=== PATIENT | male | born 1965 | race Two or more races ===

== ENCOUNTER 2017-07-02 22:52 | Emergency (ER) | payer MEDICARE, MEDICAID ==
--- NOTE | 2017-07-02 23:09 | ED Physician Documentation ---
PD HPI CHEST PAIN - Stated complaint Stated Complaint: CP - Chief complaint Chief Complaint: Cardiac - History obtained from History obtained from: Patient - History of Present Illness Timing - onset: Enter time (21:58), Today Timing - onset during: Rest Timing - duration: Minutes Timing - details: Now resolved Pain level max: 8 Pain level now: 0 Quality: Pain Location: Substernal Radiation: Left upper extremity Improved by: Nitro Worsened by: No: Exertion, Inspiration, Eating, Movement, Palpation, Position Associated symptoms: Shortness of air, Nausea. No: Vomiting Recently seen: Not recently seen - Additional information Additional information: from [facility], was at rest 9:58 pm had sudden onset chest pain radiating to left shoulder, diaphoretic, mild dyspnea and nausea. given 81mg ASA and pain was relieved with ntg x 2. denies h/o similar symptoms Review of Systems Constitutional: reports: Sweats. denies: Fever Cardiac: reports: Chest pain / pressure. denies: Palpitations, Calf pain Respiratory: reports: Dyspnea. denies: Cough GI: reports: Nausea. denies: Abdominal Pain, Vomiting PD PAST MEDICAL HISTORY - Past Medical History Past Medical History: Yes Cardiovascular: Hypertension, High cholesterol Respiratory: COPD Neuro: Head injury, Other Endocrine/Autoimmune: None GI: None : None HEENT: None Psych: Depression, Anxiety, Bipolar disorder, Other Musculoskeletal: Osteoarthritis, Other Derm: None - Past Surgical History Past Surgical History: Yes General: Appendectomy - Present Medications Home Medications: Ambulatory Orders Medication Instructions Recorded Confirmed Divalproex Sodium [Depakote] 500 mg PO DAILY 07/14/14 12/29/14 Lorazepam [Ativan] 1 mg PO QID #20 tablet 07/14/14 12/29/14 Metoprolol Tartrate 25 mg PO DAILY 11/19/14 12/29/14 Ondansetron Odt [Zofran] 4 mg TL Q6H PRN #10 tablet 11/19/14 12/29/14 Atorvastatin Calcium [Lipitor] 10 mg PO DAILY 12/20/14 12/29/14 Lisinopril 10 mg PO DAILY 12/29/14 12/29/14 Lorazepam [Ativan] 1 mg PO QID #12 tablet 12/29/14 oxyCODONE/ACET 5/325 [Percocet 5 PO Q4-6H PRN 12/29/14 12/29/14 mg/325 mg] - Allergies Allergies/Adverse Reactions: Allergies Allergy/AdvReac Type Severity Reaction Status Date / Time No Known Drug Allergies Allergy Verified 07/02/17 23:04 - Social History Does the pt smoke?: Yes Smoking Status: Current every day smoker Does the pt drink ETOH?: Yes Does the pt have substance abuse?: No - Immunizations Immunizations are current?: Yes - POLST Patient has POLST: No PD ED PE NORMAL - Vitals Vital signs reviewed: Yes - General General: Alert and oriented X 3, No acute distress, Well developed/nourished - Cardiac Cardiac: RRR, No murmur, No gallop, No rub - Respiratory Respiratory: No respiratory distress, Clear bilaterally - Abdomen Abdomen: Soft, Non tender - Derm Derm: Normal color, Warm and dry - Extremities Extremities: No edema Results - Vitals Vitals: Oxygen O2 Source Room air - EKG (time done) No standard instances Rate: Rate (enter#) (70) Rhythm: NSR Ovalo: Normal Intervals: Normal TN QRS: Normal Ischemia: Normal ST segments - Labs Labs: Laboratory Tests 07/02/17 07/02/17 07/02/17 23:18 23:18 23:18 WBC 8.4 RBC 4.96 Hgb 15.6 Hct 45.7 MCV 92.2 MCH 31.4 H MCHC 34.0 RDW 13.3 Plt Count 271 MPV 7.0 L Neut # 4.0 Lymph # 3.5 Wirt # 0.6 Eos # 0.2 Baso # 0.1 Absolute Nucleated RBC 0.00 Nucleated RBC % 0.0 Sodium 138 Potassium 4.1 Chloride 102 Carbon Dioxide 25 Anion Gap 11.0 BUN 17 Creatinine 0.8 Estimated GFR (MDRD) 102 Glucose 91 Calcium 9.4 Total Bilirubin 0.6 AST 23 ALT 23 Alkaline Phosphatase 76 Troponin I < 0.04 Total Protein 7.6 Albumin 4.4 Globulin 3.2 Albumin/Globulin Ratio 1.4 Lipase 14 L 07/03/17 01:28 WBC RBC Hgb Hct MCV MCH MCHC RDW Plt Count MPV Neut # Lymph # Wirt # Eos # Baso # Absolute Nucleated RBC Nucleated RBC % Sodium Potassium Chloride Carbon Dioxide Anion Gap BUN Creatinine Estimated GFR (MDRD) Glucose Calcium Total Bilirubin AST ALT Alkaline Phosphatase Troponin I < 0.04 Total Protein Albumin Globulin Albumin/Globulin Ratio Lipase - Rads (name of study) chest xray Radiology: Prelim report reviewed, See rad report PD MEDICAL DECISION MAKING - ED course Complexity details: reviewed results, re-evaluated patient, considered differential, d/w patient ED course: remained asymptomatic during ED stay. normal w/u including EKG, CXR, and tni x 2 (2 hours apart). outpatient f/u recommended, might benefit from stress test Departure - Departure Disposition: Home, Self Care Clinical Impression: Chest pain Condition: Good Instructions: ED Chest Pain Atypical Unkn Cause Follow-Up: [facility] [Provider Group] [facility] [Provider Group] Comments: Your tests tonight (EKG, blood tests, chest xray) do not reveal the reason for your symptoms, but these results are reassuring and thus you can follow-up with a doctor in the next several days to discuss possible further testing. Discharge Date/Time: 07/03/17 02:51
[2017-07-02 23:28] LABS: BASOPHILS # (AUTO) 0.1 10^3/uL (0.0-0.1); BASOPHILS % (AUTO) 0.6 %; EOSINOPHILS # (AUTO) 0.2 10^3/uL (0.0-0.7); EOSINOPHILS % (AUTO) 2.7 %; HGB - HEMOGLOBIN 15.6 g/dL (14.0-18.0); LYMPHOCYTES # (AUTO) 3.5 10^3/uL (1.5-3.5); LYMPHOCYTES % (AUTO) 41.9 %; MEAN CORPUSCULAR HEMOGLOBIN 31.4 pg (27.0-31.0); MEAN CORPUSCULAR VOLUME 92.2 fL (80.0-94.0); MONOCYTES # (AUTO) 0.6 10^3/uL (0.0-1.0); MONOCYTES % (AUTO) 7.3 %; NEUTROPHILS % (AUTO) 47.5 %; PLT - PLATELET COUNT 271 10^3/uL (130-450); RED BLOOD COUNT 4.96 10^6/uL (4.70-6.10); RED CELL DISTRIBUTION WIDTH 13.3 % (12.0-15.0); WHITE BLOOD COUNT 8.4 x10^3/uL (4.8-10.8)
[2017-07-02 23:40] LABS: ALBUMIN 4.4 g/dL (3.2-5.5); ALBUMIN/GLOBULIN RATIO 1.4 (1.0-2.2); BILIRUBIN,TOTAL 0.6 mg/dL (0.2-1.0); CALCIUM 9.4 mg/dL (8.5-10.3); CREATININE 0.8 mg/dL (0.6-1.2); TOTAL PROTEIN 7.6 g/dL (6.7-8.2)
--- NOTE | 2017-07-02 23:41 | XRAY Report ---
EXAM: CHEST RADIOGRAPHY EXAM DATE: 07/02/2017 11:32 PM. CLINICAL HISTORY: Chest pain and nausea. COMPARISON: 06/30/2014. TECHNIQUE: 2 views. FINDINGS: Lungs/Pleura: No alveolar consolidation or pleural effusion. No pneumothorax. Mediastinum: Heart and mediastinal contours are unremarkable. Other: Degenerative joint disease in the acromioclavicular joints. IMPRESSION: 1. No acute abnormality seen in the chest. [facility] Referring Provider Line: [phone] SITE ID: [id number]
[2017-07-03 02:07] VITALS: BP 106/72
== END 2017-07-03 02:51 | disposition home or self-care (01) ==
LOC: ED 22:52
DX: R07.9 Chest pain, unspecified (principal); I10 Essential (primary) hypertension; E78.00 Pure hypercholesterolemia, unspecified; F17.200 Nicotine dependence, unspecified, uncomplicated
CPT/HCPCS: 36415; 71046; 80053; 83690; 84484; 85025; 93005; 99283; 99284

== ENCOUNTER 2021-02-15 17:20 | Emergency (ER) | payer MEDICARE, MEDICAID ==
[2021-02-15 18:35] LABS: BASOPHILS % (AUTO) 0.4 %; EOSINOPHILS % (AUTO) 0.1 %; HCT - HEMATOCRIT 48.3 % (42.0-52.0); HGB - HEMOGLOBIN 16.6 g/dL (14.0-18.0); LYMPHOCYTES # (AUTO) 1.4 10^3/uL (1.5-3.5); LYMPHOCYTES % (AUTO) 12.9 %; MEAN CORPUSCULAR HEMOGLOBIN 31.5 pg (27.0-31.0); MEAN CORPUSCULAR HGB CONC 34.4 g/dL (32.0-36.0); MEAN CORPUSCULAR VOLUME 91.7 fL (80.0-94.0); MEAN PLATELET VOLUME 10.2 fL (7.4-11.4); MONOCYTES # (AUTO) 0.7 10^3/uL (0.0-1.0); MONOCYTES % (AUTO) 6.6 %; NEUTROPHILS # (AUTO) 8.7 10^3/uL (1.5-6.6); NEUTROPHILS % (AUTO) 79.1 %; PLT - PLATELET COUNT 303 10^3/uL (130-450); RED BLOOD COUNT 5.27 10^6/uL (4.70-6.10); RED CELL DISTRIBUTION WIDTH 13.2 % (12.0-15.0)
[2021-02-15] MEDS ORDERED: SODIUM CHLORIDE 0.9% 1,000 ML IV STA (18:43)
[2021-02-15] MEDS ORDERED: HYDROmorphone 1 MG/ML CARPUJECT IVP STA (18:43)
--- NOTE | 2021-02-15 18:45 | ED Physician Documentation ---
History of Present Illness - Stated complaint Stated Complaint: NO TASTE/SMELL/BODY ACHES - Chief complaint Chief Complaint: Resp - Additonal information Additional information: 56-year-old male presents emergency department for evaluation of approximately 9-10 days loss of taste and smell, fevers body aches cough and anorexia. He is not vaccinated for COVID-19. He is a daily tobacco user and has a history of hypertension. Review of Systems Constitutional: reports: Fever, Chills, Myalgias, Fatigue, Weight Loss Eyes: reports: Loss of vision Ears: reports: Reviewed and negative Throat: reports: Reviewed and negative Cardiac: denies: Chest pain / pressure, Palpitations, Pedal edema Respiratory: reports: Dyspnea, Cough GI: reports: Abdominal Pain, Nausea, Vomiting : reports: Reviewed and negative Skin: reports: Reviewed and negative Musculoskeletal: reports: Reviewed and negative Neurologic: reports: Reviewed and negative PD PAST MEDICAL HISTORY - Past Medical History Past Medical History: Yes Cardiovascular: Hypertension, High cholesterol Respiratory: COPD Endocrine/Autoimmune: None GI: None : None HEENT: None Psych: Depression, Anxiety, Bipolar disorder, Other Musculoskeletal: Osteoarthritis, Other Derm: None - Past Surgical History Past Surgical History: Yes General: Appendectomy - Present Medications Home Medications: Ambulatory Orders Medication Instructions Recorded Confirmed Albuterol Sulf [Ventolin Hfa 1 - 2 puffs INH Q4HR PRN #1 inhaler 02/15/21 Inhaler] Amox/Clav 875/125 [Augmentin] 1 each PO Q12H #14 tablet 02/15/21 Azithromycin [Zithromax] 0 mg PO DAILY #6 tablet 02/15/21 Benzonatate [Tessalon] 100 mg PO TID PRN #20 cap 02/15/21 - Allergies Allergies/Adverse Reactions: Allergies Allergy/AdvReac Type Severity Reaction Status Date / Time No Known Drug Allergies Allergy Verified 02/15/21 17:38 - Social History Does the pt smoke?: Yes Smoking Status: Current every day smoker Does the pt drink ETOH?: Yes Does the pt have substance abuse?: No - Immunizations Immunizations are current?: Yes - POLST Patient has POLST: No PD ED PE EXPANDED - General General: Alert, No acute distress - Neck Neck: Supple w/out meningeal sx. No: Adenopathy - Cardiac Cardiac: Regular Rate, Radial strong equal, Pedal strong equal, Cap refill < 2 sec - Respiratory Respiratory: Clear to ausultation delores, Other (Generalized tachypnea with faint rhonchorous sounds globally. No wheeze. Room air saturations 94 to 96%.) - Abdomen Abdomen: Normal Bowel sounds. No: Tender to palpation - Derm Derm: Normal color, Warm and dry. No: Rash - Extremities Extremities: Normal. No: Deformity, Tenderness - Neuro Neuro: Alert and Oriented X 3, CNII-XII intact - GCS Eye Opening: Spontaneous Motor: Obeys Commands Verbal: Oriented Total: 15 Results - Vitals Vitals: Vital Signs - 24 hr 02/15/21 02/15/21 17:32 17:39 Temperature 37.0 C 37.0 C Heart Rate 85 88 Respiratory 26 H 26 H Rate Blood Pressure 118/74 124/70 O2 Saturation 94 94 Oxygen O2 Source Room air - Labs Labs: Laboratory Tests 02/15/21 02/15/21 02/15/21 17:48 17:48 17:48 WBC 11.0 H RBC 5.27 Hgb 16.6 Hct 48.3 MCV 91.7 MCH 31.5 H MCHC 34.4 RDW 13.2 Plt Count 303 MPV 10.2 Neut # (Auto) 8.7 H Lymph # (Auto) 1.4 L [place] # (Auto) 0.7 Eos # (Auto) 0.0 Baso # (Auto) 0.0 Absolute Nucleated RBC 0.00 Nucleated RBC % 0.0 Sodium 131 L Potassium 4.0 Chloride 97 L Carbon Dioxide 22 Anion Gap 12.0 BUN 18 Creatinine 0.7 Estimated GFR (MDRD) 117 Glucose 119 H Calcium 8.2 L Total Bilirubin 0.8 AST 34 ALT 18 Alkaline Phosphatase 113 Total Protein 7.0 Albumin 3.0 L Globulin 4.0 Albumin/Globulin Ratio 0.8 L Lipase 37 Nasal Adenovirus (PCR) NOT DETECTED Nasal B. parapertussis DNA (PCR) NOT DETECTED Nasal Coronavir 229E PCR NOT DETECTED Nasal Coronavir HKU1 PCR NOT DETECTED Nasal Coronavir NL63 PCR NOT DETECTED Nasal Coronavir OC43 PCR NOT DETECTED Nasal Enterovir/Rhinovir PCR NOT DETECTED Nasal Influenza B PCR NOT DETECTED Nasal Influenza A PCR NOT DETECTED Nasal Parainfluen 1 PCR NOT DETECTED Nasal Parainfluen 2 PCR NOT DETECTED Nasal Parainfluen 3 PCR NOT DETECTED Nasal Parainfluen 4 PCR NOT DETECTED Nasal RSV (PCR) NOT DETECTED Nasal B.pertussis DNA PCR NOT DETECTED Nasal C.pneumoniae (PCR) NOT DETECTED [place] Human Metapneumo PCR NOT DETECTED Nasal M.pneumoniae (PCR) NOT DETECTED Nasal SARS-CoV-2 (PCR) DETECTED A - Rads (name of study) CXR Radiology: Final report received (Basilar atelectasis versus pneumonia) PD MEDICAL DECISION MAKING - ED course Complexity details: reviewed results, considered differential, d/w patient ED course: 56-year-old male presents emergency department for evaluation of cough congestion myalgias fevers and loss of taste and smell. Symptoms began about 9 to 10 days ago. He is not vaccinated for COVID-19. Today her screening labs do show very small leukocytosis of 11,000. Screening electrolytes and chemistries show mild hyponatremia of 131. Respiratory PCR is positive for COVID-19. Chest x-ray is suggestive of bibasilar atelectasis versus early pneumonia. On cardiopulmonary auscultation he does have some generalized rhonchi. However his room air saturations are 94 to 97%. Due to the length of time that he has had the symptoms he is not a candidate for Mab/Regeneron therapy. He also does not meet criteria for admission to the hospital for COVID-19 given that he does not have hypoxia. This gentleman was given a dose of Decadron here in the emergency department and will be discharged with a prescription for azithromycin and Augmentin for treatment of possible early pneumonia. I have advised him to sleep on his belly as much as possible as well as to stay as hydrated as he can. Tylenol and ibuprofen for discomfort. I will also prescribe some Tessalon Perles and albuterol to help with the cough. We discussed that he must remain in quarantine for at least 10 days. Discussed that if his symptoms worsen, he is severely short of breath or has oxygen levels less than 90% that he should return immediately to the emergency department. Departure - Departure Disposition: 01 Home, Self Care Clinical Impression: COVID-19 Pneumonia Qualifiers: Pneumonia type: due to COVID-19 virus Qualified Code(s): U07.1 - COVID-19; J12.82 - Pneumonia due to coronavirus disease 2019 Condition: Stable Record reviewed to determine appropriate education?: Yes Prescriptions: Albuterol Sulf [Ventolin Hfa Inhaler] 1 - 2 puffs INH Q4HR PRN #1 inhaler PRN Reason: Shortness Of Air/Wheezing Amox/Clav 875/125 [Augmentin] 1 each PO Q12H #14 tablet Benzonatate [Tessalon] 100 mg PO TID PRN #20 cap PRN Reason: Cough Azithromycin [Zithromax] 0 mg PO DAILY #6 tablet Comments: Juan you were seen today for cough, congestion fever loss of taste and smell. You are positive for COVID-19. Unfortunately due to the duration that you have had your symptoms you are not a candidate for Regeneron or antibody therapy. Your chest x-ray suggest that you may be developing an early pneumonia. However reassuringly, your oxygen levels are not low here in the emergency department. I would like you to fill the prescription for the antibiotics and begin taking as directed. I have prescribed Tessalon Perles to help with the cough. I have also prescribed albuterol which the respiratory therapist will show you how to use. This is to help reduce the cough. With COVID-19 it is important that you remain in quarantine for at least 10 days. We do recommend that you sleep on your belly if you are able to. This does improve the outcome in COVID-19. If at any point you feel that your symptoms are worsening, you are more labored or short of breath or you have oxygen levels less than 90% then please return immediately to the ER for a second evaluation. [facility] [place].
[2021-02-15 18:58] LABS: ALBUMIN/GLOBULIN RATIO 0.8 (1.0-2.2); BILIRUBIN,TOTAL 0.8 mg/dL (0.2-1.0); CALCIUM 8.2 mg/dL (8.5-10.3); CREATININE 0.7 mg/dL (0.6-1.2)
--- NOTE | 2021-02-15 19:11 | XRAY Report ---
PROCEDURE: Chest 1 View X-Ray INDICATIONS: chest pain TECHNIQUE: One view of the chest was acquired. COMPARISON: 07/02/2017 FINDINGS: Surgical changes and devices: None. Lungs and pleura: No pleural effusions or pneumothorax. Patchy opacities in the lung bases bilateral ly. Mediastinum: Mediastinal contours appear normal. Heart size is normal. Bones and chest wall: No suspicious bony lesions. Overlying soft tissues appear unremarkable. IMPRESSION: Basilar atelectasis versus pneumonia. Reviewed by: Gris Rascon MD, PhD on 02/15/2021 7:10 PM PDT Approved by: Gris Rascon MD, PhD on 02/15/2021 7:10 PM PDT Station ID: [id number]
[2021-02-15 19:32] LABS: B. PARAPERTUSSIS- RESP PCR PAN NOT DETECTED; B. PERTUSSIS- RESP PCR PANEL NOT DETECTED; C. PNEUMONIAE- RESP PCR PANEL NOT DETECTED; CORONAVIRUS 229E-RESP PCR NOT DETECTED; CORONAVIRUS HKU1-RESP PCR NOT DETECTED; CORONAVIRUS NL63-RESP PCR NOT DETECTED; CORONAVIRUS OC43-RESP PCR NOT DETECTED; HUMAN METAPNEUMOVIRUS NOT DETECTED; INFLUENZA A- RESP PCR PANEL NOT DETECTED; INFLUENZA B - RESP PCR PANEL NOT DETECTED; M. PNEUMONIAE- RESP PCR PANEL NOT DETECTED; PARAINFLUENZA VIRUS 1 NOT DETECTED; PARAINFLUENZA VIRUS 2 NOT DETECTED; PARAINFLUENZA VIRUS 3 NOT DETECTED; PARAINFLUENZA VIRUS 4 NOT DETECTED; RHINOVIRUS/ENTEROVIRUS NOT DETECTED; RSV- RESP PCR PANEL NOT DETECTED; SARS-CoV-2 -RESP PCR PANEL DETECTED
[2021-02-15] MEDS ORDERED: CHERRY SYRUP 10 ML UDC PO ONE (19:32)
[2021-02-15] MEDS ORDERED: AZITHROMYCIN 250 MG TABLET PO STA (19:32)
[2021-02-15] MEDS ORDERED: AMOX/CLAV 875 MG/125 MG TABLET PO STA (19:32)
[2021-02-15] MEDS ORDERED: DEXAMETHASONE 10 MG/ML VIAL PO STA (19:32)
[2021-02-15] MEDS ORDERED: ALBUTEROL 1 PUFF INH STA (19:44)
[2021-02-15 19:52] VITALS: BP 103/62
== END 2021-02-15 20:50 | disposition home or self-care (01) ==
LOC: ED 17:20
DX: U07.1 COVID-19 (principal); J12.82 Pneumonia due to coronavirus disease 2019; E87.1 Hypo-osmolality and hyponatremia; I10 Essential (primary) hypertension; F17.200 Nicotine dependence, unspecified, uncomplicated
CPT/HCPCS: 36415; 71045; 80053; 83690; 85025; 87631; 94640; 94664; 96361; 96374; 99283; 99284; A9270; J1170; 0202U

== ENCOUNTER 2021-04-10 13:30 | Outpatient (CLI) | payer MEDICARE, OTHER ==
--- NOTE | 2021-04-10 16:27 | CT Report ---
PROCEDURE: CHEST WO INDICATIONS: ENCNTR SCREEN FOR MALIGNANT NEOPLASM OF RESPIRATOR TECHNIQUE: Noncontrast 1mm axial images were acquired from the pulmonary apices to the posterior costophrenic an gles. Axial 5 mm soft tissue kernel reconstructions were performed as well as 8 mm axial MIP and cor onal and sagittal 5 mm reformations. For radiation dose reduction, the following was used: automate d exposure control, adjustment of mA and/or kV according to patient size. COMPARISON: Chest radiograph 02/15/2021 FINDINGS: Image quality: Excellent. Lungs and pleura: No acute air space opacities. No pleural effusions or pneumothorax. Central and peripheral airways are patent and normal in caliber. Mediastinum: Heart size is normal. No pericardial effusion. Minimal coronary artery calcifications . No mediastinal adenopathy by size criteria. Thoracic aorta and central pulmonary arteries are norm al in size. Esophagus is normal in caliber. No hiatal hernia. Bones and chest wall: No suspicious bony lesions. Degenerative changes are noted at the C6-7 level. No vertebral body compression fractures. No axillary or supraclavicular adenopathy by size criteria. The thyroid is normal in size and there are no incidental findings. Abdomen: Visualized upper abdominal solid organs and bowel loops appear normal in the absence of con trast. IMPRESSION: No suspicious pulmonary nodule. No acute abnormality is seen in the chest. Reviewed by: Kevyn Dukes MD on 04/10/2021 4:26 PM PST Approved by: Kevyn Dukes MD on 04/10/2021 4:26 PM PST Station ID: [id number]
== END 2021-04-10 13:31 | disposition home or self-care (01) ==
LOC: DI 13:30
PROVIDERS: ATTEND Student in an Organized Health Care Education/Training Program
DX: Z12.2 Encounter for screening for malignant neoplasm of respiratory organs (principal)

== ENCOUNTER 2021-11-25 19:19 | Emergency (ER) | payer MEDICARE, MEDICAID ==
[2021-11-25] MEDS ORDERED: MORPHINE 2 MG/ML CARPUJECT IVP STA (19:31)
[2021-11-25] MEDS ORDERED: KETOROLAC 30 MG/ML VIAL IVP STA (19:31)
[2021-11-25] MEDS ORDERED: SODIUM CHLORIDE 0.9% 1,000 ML IV STA (19:34)
[2021-11-25 19:40] LABS: BASOPHILS # (AUTO) 0.1 10^3/uL (0.0-0.1); BASOPHILS % (AUTO) 0.5 %; EOSINOPHILS # (AUTO) 0.2 10^3/uL (0.0-0.7); EOSINOPHILS % (AUTO) 2.3 %; HCT - HEMATOCRIT 44.5 % (42.0-52.0); HGB - HEMOGLOBIN 15.5 g/dL (14.0-18.0); LYMPHOCYTES # (AUTO) 3.8 10^3/uL (1.5-3.5); LYMPHOCYTES % (AUTO) 41.2 %; MEAN CORPUSCULAR HEMOGLOBIN 31.7 pg (27.0-31.0); MEAN CORPUSCULAR HGB CONC 34.8 g/dL (32.0-36.0); MEAN PLATELET VOLUME 8.2 fL (7.4-11.4); MONOCYTES # (AUTO) 0.6 10^3/uL (0.0-1.0); MONOCYTES % (AUTO) 6.9 %; NEUTROPHILS # (AUTO) 4.5 10^3/uL (1.5-6.6); NEUTROPHILS % (AUTO) 48.6 %; PLT - PLATELET COUNT 353 10^3/uL (130-450); RED BLOOD COUNT 4.89 10^6/uL (4.70-6.10); RED CELL DISTRIBUTION WIDTH 12.8 % (12.0-15.0); WHITE BLOOD COUNT 9.3 x10^3/uL (4.8-10.8)
[2021-11-25 19:49] LABS: CALCIUM 9.7 mg/dL (8.5-10.3); CREATININE 0.7 mg/dL (0.6-1.2); POTASSIUM 3.8 mmol/L (3.5-5.0)
[2021-11-25] MEDS ORDERED: DEXAMETHASONE 10 MG/ML VIAL IVP STA (19:53)
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
[2021-11-25] MEDS ORDERED: SILVER SULFADIAZINE CREAM 25 GM TUBE TOP STA (20:25)
[2021-11-25] MEDS ORDERED: oxyCODONE 5 MG TABLET PO STA (21:28)
[2021-11-25 21:36] VITALS: BP 130/81
== END 2021-11-25 21:34 | disposition home or self-care (01) ==
LOC: ED 19:19
DX: T22.20XA Burn of second degree of shoulder and upper limb, except wrist and hand, unspecified site, initial encounter (principal); X03.0XXA Exposure to flames in controlled fire, not in building or structure, initial encounter; Y93.89 Activity, other specified; F17.200 Nicotine dependence, unspecified, uncomplicated
CPT/HCPCS: 36415; 80048; 85025; 96374; 96375; 99282; 99283; A9270

== ENCOUNTER 2023-06-22 05:03 | Emergency (ER) | payer MEDICARE, MEDICAID ==
[2023-06-22 05:26] VITALS: BP 164/97; O2SAT 98
--- NOTE | 2023-06-22 05:41 | ED Physician Documentation ---
PD HPI HEENT - Stated complaint Stated Complaint: L SIDE FACE PX - Chief complaint Chief Complaint: Heent - History obtained from History obtained from: Patient - Additional information Additional information: Patient is a 58-year-old male presenting for evaluation of left-sided dental pain with some facial swelling. Patient states that the dental pain started approximately 3 days ago. Yesterday he developed swelling to the lower jaw area. Per patient and friend at the bedside the swelling has slightly improved. Patient has been using ibuprofen without any improvement. He does not currently have a dentist. Denies fever. No cough, congestion, shortness of air. Pain radiates towards the left ear. Review of Systems Constitutional: denies: Fever Throat: reports: Dental pain / toothache Cardiac: denies: Chest pain / pressure Respiratory: denies: Dyspnea GI: denies: Vomiting PD PAST MEDICAL HISTORY - Past Medical History Cardiovascular: Hypertension, High cholesterol Respiratory: COPD Endocrine/Autoimmune: None GI: None : None HEENT: None Psych: Depression, Anxiety, Bipolar disorder, Other Musculoskeletal: Osteoarthritis, Other Derm: None - Past Surgical History Past Surgical History: Yes General: Appendectomy - Present Medications Home Medications: Ambulatory Orders Medication Instructions Recorded Confirmed Amox/Clav 875/125 [Augmentin] 1 each PO Q12H #20 tablet 06/22/23 HYDROcod/ACETAM 5/325 [Solon 5/325] 1 tablet PO Q6H PRN #10 tablet 06/22/23 - Allergies Allergies/Adverse Reactions: Allergies Allergy/AdvReac Type Severity Reaction Status Date / Time No Known Drug Allergies Allergy Verified 06/22/23 05:22 - Social History Does the pt smoke?: Yes Smoking Status: Current every day smoker Does the pt drink ETOH?: Yes Does the pt have substance abuse?: No - Immunizations Immunizations are current?: Yes - POLST Patient has POLST: No PD ED PE NORMAL - General General: Alert and oriented X 3, No acute distress, Well developed/nourished, Other - HEENT HEENT: Atraumatic, Ears normal, Moist mucous membranes, Pharynx benign (No oral swelling, erythema or exudate), Other (Poor dentition with multiple missing or eroded teeth; black appearance to remaining teeth; Mild swelling to left lower jaw, no fluctuance, no erythema, no trismus) - Neck Neck: Supple, no meningeal sign - Cardiac Cardiac: RRR - Respiratory Respiratory: No respiratory distress, Clear bilaterally - Derm Derm: Warm and dry - Neuro Neuro: Normal speech Results - Vitals Vitals: Vital Signs - 24 hr 06/22/23 05:19 Temperature 36.1 C L Heart Rate 83 Respiratory 18 Rate Blood Pressure 164/97 H O2 Saturation 98 Oxygen O2 Source Room air PD Medical Decision Making - ED course ED course: Patient is a 58-year-old male presenting for evaluation of dental pain for the past few days with recent development of left lower facial swelling. Patient and significant other have stated that the swelling was worse and is starting to improve on its own. No trismus. No signs of airway compromise. No signs of Uziel angina.Vital signs here are stable. Patient to be started on Augmentin. He was given dental resources. He understand strict return precautions for any worsening symptoms. Departure - Departure Disposition: 01 Home, Self Care Clinical Impression: Dental infection Condition: Stable Instructions: ED Abscess Dental Prescriptions: Amox/Clav 875/125 [Augmentin] 1 each PO Q12H #20 tablet HYDROcod/ACETAM 5/325 [Solon 5/325] 1 tablet PO Q6H PRN #10 tablet PRN Reason: Pain Comments: You have a dental infection. I am starting you on an antibiotic and have sent this prescription to [facility] in [place]. I have also sent a small amount of narcotic pain medication to help you with any pain that is not controlled by fxtx-dbb-jfotqry medications. I am prescribing a short course of narcotic pain medication for you. These are potentially dangerous and addictive medications that should be used carefully. These medications may constipate you. Take an bvvb-zev-yfuffks stool softener (docusate) twice daily with plenty of water while taking these medications. If you go 24 hours without a bowel movement, take giul-wxr-tkpixzl miralax, per package instructions. Do not drink or drive while taking these medications. If you received narcotic or sedating medications while in the emergency department, do not drive for 24 hours. Store this medication in a safe, secure place and out of reach of children. It is a violation of federal law to give or sell this medication to another person or to use in a manner other than prescribed. The ED will not refill narcotic prescriptions, including prescriptions lost or stolen. To dispose of unwanted medications: 1. [facility] at [address] in [place] has a medication drop box. They accept prescription medications (in pill form) Wednesday through Wednesday 9:00 a.m. to 5:00 p.m. 2. The [facility] [employer] accepts prescription medications (in pill form only) for disposal year round. Call for more information. 3. Contact the [facility] for the next [facility] sponsored prescription drug collection event. , [phone], or [phone]; Note that many narcotic pain relievers also contain Tylenol/acetaminophen. Please ensure that your total dose of acetaminophen from all sources does not exceed 3 g (3000 mg) per day. It is very important that you follow-up with a dentist. When it comes to dental problems like yours, the emergency department can only offer a short-term solution to your long-term problem. A couple of low cost options for dental care include: [facility] in [place], calls [phone] for an appointment Or [facility] in [place], call [phone] for an appointment. Return to the emergency department with any worsening. Forms: PCP List Discharge Date/Time: 06/22/23 05:48
[2023-06-22] MEDS: AMOX/CLAV 875 MG/125 MG TABLET PO STA (05:45)
[2023-06-22] MEDS: oxyCODONE 5 MG TABLET PO STA (05:45)
== END 2023-06-22 05:48 | disposition home or self-care (01) ==
LOC: ED 05:03
DX: K04.7 Periapical abscess without sinus (principal); I10 Essential (primary) hypertension; E78.00 Pure hypercholesterolemia, unspecified; J45.909 Unspecified asthma, uncomplicated; M19.90 Unspecified osteoarthritis, unspecified site; F17.200 Nicotine dependence, unspecified, uncomplicated
CPT/HCPCS: 99282; 99283; A9270

== ENCOUNTER 2023-06-24 02:42 | Emergency (ER) | payer MEDICARE, MEDICAID ==
[2023-06-24 03:12] VITALS: BP 145/78; O2SAT 100
--- NOTE | 2023-06-24 03:16 | ED Physician Documentation ---
History of Present Illness - Stated complaint Stated Complaint: JAW PX - Chief complaint Chief Complaint: Heent - History obtained from History obtained from: Patient - Additonal information Additional information: The pt comes to the ED with CC of L mandibular pain and swelling since yesterday. No injury. The pt is largely edentulous, but does still have an embedded wisdom tooth on that side. No fevers. PD PAST MEDICAL HISTORY - Past Medical History Past Medical History: Yes Cardiovascular: Hypertension, High cholesterol Respiratory: COPD Endocrine/Autoimmune: None GI: None : None HEENT: None Psych: Depression, Anxiety, Bipolar disorder, Other Musculoskeletal: Osteoarthritis, Other Derm: None - Past Surgical History Past Surgical History: Yes General: Appendectomy - Present Medications Home Medications: Ambulatory Orders Medication Instructions Recorded Confirmed Amox/Clav 875/125 [Augmentin] 1 each PO Q12H #20 tablet 06/22/23 06/24/23 HYDROcod/ACETAM 5/325 [[place]rus 5/325] 1 tablet PO Q6H PRN #10 tablet 06/22/23 06/24/23 Amoxicillin 500 mg PO TID 7 Days #21 cap 06/24/23 - Allergies Allergies/Adverse Reactions: Allergies Allergy/AdvReac Type Severity Reaction Status Date / Time No Known Drug Allergies Allergy Verified 06/24/23 02:50 - Social History Does the pt smoke?: Yes Smoking Status: Current every day smoker Does the pt drink ETOH?: Yes Does the pt have substance abuse?: No - Immunizations Immunizations are current?: Yes - POLST Patient has POLST: No PD ED PE NORMAL - Vitals Vital signs reviewed: Yes - General General: Alert and oriented X 3, No acute distress, Well developed/nourished - HEENT HEENT: Atraumatic, PERRL, EOMI, Moist mucous membranes, Other (No visible L mandibular teeth. Mild tenderness of buccal gingiva, but no edema, induration or fluctuance. Firm ST enlargement over L mandibular angle. No fluctuance. Very localized, no edema of face or neck. No LAD.) - Cardiac Cardiac: RRR, No murmur - Respiratory Respiratory: Clear bilaterally - Abdomen Abdomen: Normal bowel sounds, Soft, Non tender, Non distended - Derm Derm: Warm and dry - Extremities Extremities: No deformity - Neuro Neuro: Alert and oriented X 3 - Psych Psych: Normal mood, Normal affect Results - Vitals Vitals: Oxygen O2 Source Room air PD Medical Decision Making - ED course Complexity details: considered differential, d/w patient, d/w family ED course: I d/w pt and s/o that while dental source is possible, since the pt has extensive dental decay and loss, and still has a wisdom tooth on that side, the fact that the rest of his teeth on the L mandible are already gone makes the probability of a dental source low. I actually suspect a parotid duct obstruction. We have discussed using warm compresses and sialagogues. I will treat for dental infection also. We have discussed the usual indications for follow-up and return. Departure - Departure Disposition: 01 Home, Self Care Clinical Impression: Parotid sialoadenitis Condition: Stable Instructions: ED Sublingual Gland Obstruction Prescriptions: Amoxicillin 500 mg PO TID 7 Days #21 cap Comments: Your swelling could be due to a dental infection, but since your teeth are pretty much gone on your left jaw, this is less likely. It is possible that you have an infected wisdom tooth, but since your tooth has not actually erupted, this is also less likely. You have very distinct swelling right over your parotid gland, avoid of the glands that produces saliva. This is located right at the back of your cheek where the angle of your jaw is. Sometimes a small calcium stone can block the ducts or tubes that drain saliva from the gland into the mouth, and the saliva can start to back up in the gland. This can cause firmness and pain and swelling. The treatment is to try to clear the blockage in the gland and get saliva flowing again. Some of the ways that this can be done are to massage the gland regularly throughout the day, place hot compresses over the swollen area, and to suck on lemon or other sour candies that caused her saliva glands to produce extra saliva. A prescription for some antibiotics [facility] [place], to cover the possibility that this is still a dental infection stemming from your wisdom tooth. Please take the antibiotics as directed until gone. Please follow-up with your dentist or primary doctor as needed. Forms: PCP List Discharge Date/Time: 06/24/23 03:31
[2023-06-24] MEDS: AMOXICILLIN 250 MG CAPSULE PO STA (03:27)
[2023-06-24] MEDS: HYDROcod/ACETAM 5/325 MG TABLET PO STA (03:27)
== END 2023-06-24 03:31 | disposition home or self-care (01) ==
LOC: ED 02:42
DX: K11.20 Sialoadenitis, unspecified (principal); I10 Essential (primary) hypertension; F17.200 Nicotine dependence, unspecified, uncomplicated
CPT/HCPCS: 99282; 99283; A9270

== ENCOUNTER 2023-08-14 13:59 | Emergency (ER) | payer MEDICAID, MEDICARE, OTHER ==
--- NOTE | 2023-08-14 14:12 | ED Physician Documentation ---
History of Present Illness - Stated complaint Stated Complaint: FACIAL SWELLING - Chief complaint Chief Complaint: General - Additonal information Additional information: 58-year-old male with poor dentition presents emergency department for left facial swelling. Patient was here in June twice for left facial swelling he was initially thought to have a dental infection and was prescribed antibiotics he presented back to the ER 2 days later and there was concern about a possible parotid duct blockage. He completed full course of antibiotics and the left facial swelling and pain never fully resolved over the last 3 days pain is go tten significantly worse to the point where he is now having fevers and chills and having jaw trismus and difficulty managing the pain. The swelling is to the left jaw region. PD PAST MEDICAL HISTORY - Past Medical History Past Medical History: Yes Cardiovascular: Hypertension, High cholesterol Respiratory: COPD Endocrine/Autoimmune: None GI: None : None HEENT: None Psych: Depression, Anxiety, Bipolar disorder, Other Musculoskeletal: Osteoarthritis, Other Derm: None - Past Surgical History Past Surgical History: Yes General: Appendectomy - Present Medications Home Medications: Ambulatory Orders Medication Instructions Recorded Confirmed Amoxicillin 500 mg PO TID 7 Days #21 cap 06/24/23 08/14/23 Acetaminophen [Tylenol] 1,000 mg PO Q4-6H 08/14/23 08/14/23 Magnesium Oxide [Mag Ox] 400 mg PO BID 08/14/23 08/14/23 - Allergies Allergies/Adverse Reactions: Allergies Allergy/AdvReac Type Severity Reaction Status Date / Time No Known Drug Allergies Allergy Verified 08/14/23 14:06 - Social History Does the pt smoke?: Yes Smoking Status: Current every day smoker Does the pt drink ETOH?: Yes Does the pt have substance abuse?: No - Immunizations Immunizations are current?: Yes - POLST Patient has POLST: No PD ED PE NORMAL - Vitals Vital signs reviewed: Yes - General General: Alert and oriented X 3, No acute distress, Well developed/nourished - HEENT HEENT: Other (Overall very poor dentition, has significant left facial swelling mostly along the left jaw region, mastoid tenderness, jaw trismus) - Neck Neck: Other (left adenopathy) Results - Vitals Vitals: Vital Signs - 24 hr 08/14/23 08/14/23 08/14/23 14:00 16:06 17:35 Temperature 36.0 C L 36.1 C L Heart Rate 65 69 66 Respiratory 20 20 16 Rate Blood Pressure 164/104 H 135/107 H 162/97 H O2 Saturation 100 99 100 Oxygen O2 Source Room air - Labs Labs: Laboratory Tests 08/14/23 08/14/23 14:25 14:25 WBC 11.3 H RBC 5.16 Hgb 15.5 Hct 48.0 MCV 93.0 MCH 30.0 MCHC 32.3 RDW 13.1 Plt Count 349 MPV 8.4 Neut # (Auto) 7.7 H Lymph # (Auto) 2.5 Milam # (Auto) 0.8 Eos # (Auto) 0.2 Baso # (Auto) 0.0 Absolute Nucleated RBC 0.00 Nucleated RBC % 0.0 Sodium 136 Potassium 4.3 Chloride 103 Carbon Dioxide 28 Anion Gap 5.0 L BUN 10 Creatinine 0.7 Estimated GFR (MDRD) 116 Glucose 103 Calcium 9.8 Magnesium 1.9 Total Bilirubin 0.3 AST 13 ALT 14 Alkaline Phosphatase 105 Total Protein 7.6 Albumin 4.0 Globulin 3.6 Albumin/Globulin Ratio 1.1 - Rads (name of study) CT maxillofacial with Relevant Findings:: Final report received, EMP independent interpretation of test, Other (Left mandibular dental radicular cyst with cortical disruption, 1.4 cm abscess with surrounding cellulitis) CT neck soft tissue with Relevant Findings:: Final report received, EMP independent interpretation of test, Other (Left mandibular dental soft tissue abscess) PD Medical Decision Making - ED course ED course: 58-year-old male here for persistent left facial swelling since June. 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 I decided to pursue a CT soft tissue maxillofacial and neck with contrast for further evaluation as patient has been dealing with this now since mid June with little to no resolve. CT revealed left mandibular dental radicular cyst with cortical disruption resulting in an overlying soft tissue 1.4 cm abscess with surrounding cellulitis. Patient has very poor oral hygiene and dentition. I reach out to a wonderful local maxillofacial surgeon Dr. Naik who was kind enough to consult on the patient. He suggest starting patient on Augmentin twice daily for 10 days as well as a Solu-Medrol pack for inflammation. Dr. Naik is recommending that he will need outpatient surgery I have submitted an online referral form on behalf of the patient to Dr. Martínez's office and they have Dr. Naik contact information as well. On the referral form I have given the direct prison medical phone number. I also spoke directly with the prison nurse Keke and have given the above recommendations as well as the prescription recommendations and she understands. This was also printed out on discharge paperwork and will be given to prison medical staff. Patient was informed of these results all questions have been answered and he is safe for discharge at this time. Departure - Departure Disposition: 01 Home, Self Care Clinical Impression: Radicular cyst of dental pulp, Dental abscess Instructions: ED Abscess Dental, ED Dental Abscess Facial Cellulitis Comments: Thank you for trusting us with your care. We have completed a CT scan which does reveal that you have a left dental radicular cyst that has abscessed and turned into an infection. We have started you on an antibiotic called Augmentin you will take this twice a day for 10 days. You took the first dose here in the emergency department at 1725. We are also recommending that you are started on a Medrol pack which is a steroi d to help with the inflammation we did not start you on this here today this is something we will start on when you get to the prison. Medrol dosing instructions Day 1: 24 mg (Pt needs this dose tonight) Day 2: 20mg Day 3: 16 mg Day 4: 12 mg Day 5: 8 mg Day 6: 4 mg This will need surgery with a maxillofacial surgeon Dr. Naik his office contact information is [phone] and I have made a referral to his office on your behalf and so his office may be calling the prison clinic to establish his appointment. If your facial swelling or infection gets any worse please present back to the emergency department. Forms: PCP List Discharge Date/Time: 08/14/23 17:40
[2023-08-14 14:28] LABS: BASOPHILS % (AUTO) 0.4 %; EOSINOPHILS # (AUTO) 0.2 10^3/uL (0.0-0.7); EOSINOPHILS % (AUTO) 1.3 %; HGB - HEMOGLOBIN 15.5 g/dL (14.0-18.0); LYMPHOCYTES # (AUTO) 2.5 10^3/uL (1.5-3.5); LYMPHOCYTES % (AUTO) 22.3 %; MEAN CORPUSCULAR HGB CONC 32.3 g/dL (32.0-36.0); MEAN PLATELET VOLUME 8.4 fL (7.4-11.4); MONOCYTES # (AUTO) 0.8 10^3/uL (0.0-1.0); MONOCYTES % (AUTO) 7.1 %; NEUTROPHILS # (AUTO) 7.7 10^3/uL (1.5-6.6); NEUTROPHILS % (AUTO) 68.2 %; PLT - PLATELET COUNT 349 10^3/uL (130-450); RED BLOOD COUNT 5.16 10^6/uL (4.70-6.10); RED CELL DISTRIBUTION WIDTH 13.1 % (12.0-15.0); WHITE BLOOD COUNT 11.3 x10^3/uL (4.8-10.8)
[2023-08-14 14:42] LABS: ALBUMIN/GLOBULIN RATIO 1.1 (1.0-2.2); BILIRUBIN,TOTAL 0.3 mg/dL (0.2-1.0); CALCIUM 9.8 mg/dL (8.5-10.3); CREATININE 0.7 mg/dL (0.6-1.3); MAGNESIUM 1.9 mg/dL (1.7-2.3); POTASSIUM 4.3 mmol/L (3.5-4.5); TOTAL PROTEIN 7.6 g/dL (6.4-8.9)
[2023-08-14] MEDS: KETOROLAC 30 MG/ML VIAL IVP STA (15:03)
[2023-08-14] MEDS ORDERED: iohexoL-300 100 ML VIAL ONE (15:08)
[2023-08-14] MEDS: iohexoL-300 100 ML VIAL IVP ONE (15:30)
--- NOTE | 2023-08-14 16:20 | CT Report ---
PROCEDURE: Maxillofacial CT with contrast INDICATIONS: left mastoid tenderness, left facial swelling TECHNIQUE: Helical axial CT of the facial structures and mandible were obtained after an intravenous contrast injection and reformatted in multiple planes. Radiation dose reduction was achieved using automated exposure control and adjustment of mA and/or kV according to patient size. COMPARISON: None. FINDINGS: Maxillofacial Bones: The zygomaticomaxillary complex is intact. The pterygoid plates and skull base are unremarkable. No evidence of fracture or lytic lesion. Mandible: The mandible is intact without fracture. Unremarkable temporomandibular articulation. Dentition: Advanced maxillary and mandibular comparison periodontal dental disease with multiple abs ent teeth. There is a carious left mandibular molar associated with radicular cyst in the labial side cortical disruption and overlying soft tissue swelling/edema. 1.4 x 1.1 cm focal adjacent fluid aníbal ection within the adjacent masseter muscle consistent with abscess Soft tissues: As above Orbits: The osseous orbits, globes and ocular muscles unremarkable. Sinuses and Mastoid: The visualized portion of the paranasal sinuses and mastoids are normal. No air -fluid levels or wall fractures. The nasal vault is unremarkable. IMPRESSION: Left mandibular dental radicular cyst with cortical disruption results in overlying soft tissue 1.4 c m abscess with surrounding cellulitis Advanced mandibular and maxillary dental and periodontal disease Reviewed by: Ashok Coates MD on 08/14/2023 3:18 PM AKDT Approved by: Ashok Coates MD on 08/14/2023 3:18 PM AKDT Station ID: [id number]
--- NOTE | 2023-08-14 16:28 | CT Report ---
PROCEDURE: CT neck with contrast INDICATIONS: left mastoid tenderness, left facial swelling TECHNIQUE: Helical axial CT of the neck was obtained after an intravenous contrast injection, and re formatted in multiple planes. Radiation dose reduction was achieved using automated exposure control or adjustment of mA and/or kV according to patient size. COMPARISON: None. FINDINGS: Skull Base: The visualized intracranial contents, skull, and orbits are unremarkable. Visualized par anasal sinuses and mastoids are clear. Pharynx and Larynx: The nasopharyngeal airway is patent and midline. Parapharyngeal soft tissues in cluding palantine tonsils and base of the tongue are normal. Retropharyngeal space unremarkable. No rmal appearance of the false and true vocal cords. Muscles and Fascial Planes: 2.5 x 2.2 cm abscess associated with the left mandible shows surrounding inflammatory change adjacent adenopathy measuring up to 1 cm. Lymph Nodes: No evidence of adenopathy. Vasculature: Unremarkable. Submandibular and Parotid Glands: Normal in size and attenuation. Thyroid: Unremarkable. No enlarged or calcified nodules. Bones: Advanced maxillary and mandibular comparison periodontal disease associated with left mandibu lar molar radicular cyst and cortical disruption along the lingual side cortex Lung Apices: The visualized lung apices are clear. IMPRESSION: Both mastoids are clear without evidence of mastoiditis. Left mandibular dental soft tissue abscess Reviewed by: Ashok Coates MD on 08/14/2023 3:26 PM AKDT Approved by: Ashok Coates MD on 08/14/2023 3:26 PM AKDT Station ID: [id number]
[2023-08-14] MEDS: AMOX/CLAV 875 MG/125 MG TABLET PO STA (17:34)
[2023-08-14 17:43] VITALS: BP 162/97; O2SAT 100
== END 2023-08-14 17:40 | disposition home or self-care (01) ==
LOC: ED 13:59
DX: K04.8 Radicular cyst (principal); K05.20 Aggressive periodontitis, unspecified; I10 Essential (primary) hypertension; F17.200 Nicotine dependence, unspecified, uncomplicated
CPT/HCPCS: 36415; 70487; 70491; 80053; 83735; 85025; 96374; 99284; A9270; Q9967